=== PATIENT | female | born 1960 | race Two or more races ===

== ENCOUNTER 2017-06-20 13:51 | Emergency (ER) | payer SELFPAY ==
[~2017-06-20] VITALS: Ht 160 cm; Wt 63.5 kg
--- NOTE | 2017-06-20 13:51 | NUR ---
BBRA FROM WORK PER REPORT C/O "NOT FEELING GOOD". NAD NOTED. VSS. PT PLACED ON MONITOR. MD AT BEDSIDE FOR EVAL.
[2017-06-20 14:42] LABS: BASOPHILS % (AUTO) 0.3 % (0.0-2.0); EOSINOPHILS # (AUTO) 0.1 /CMM (0.0-0.7); EOSINOPHILS % (AUTO) 0.9 % (0.0-6.0); HEMATOCRIT 34 % (33-45); LYMPHOCYTES # (AUTO) 2.4 /CMM (0.8-4.8); LYMPHOCYTES % (AUTO) 20.4 % (20.0-44.0); MEAN CORPUSCULAR HEMOGLOBIN 30 PG (26.0-33.0); MEAN CORPUSCULAR HGB CONC 35 g/dl (31.0-36.0); MEAN CORPUSCULAR VOLUME 86 fL (82-100); MONOCYTES # (AUTO) 0.7 /CMM (0.1-1.30); MONOCYTES % (AUTO) 5.8 % (2.0-12.0); NEUTROPHILS # (AUTO) 8.8 /CMM (1.8-8.9); NEUTROPHILS % (AUTO) 72.6 % (43.0-81.0); PLATELET COUNT (AUTO) 337 /CMM (150-450); RDW COEFFICIENT OF VARIATION 12.4 (11.5-15.0); RED BLOOD CELL COUNT(AUTO) 3.96 MIL/uL (4.0-5.2); WHITE BLOOD COUNT (AUTO) 11.9 K/uL (4.3-11.0)
[2017-06-20 14:51] LABS: CALCIUM, SERUM 8.3 mg/dL (8.5-10.1); CARBON DIOXIDE 19 mmol/L (21-32); CHLORIDE 103 mmol/L (98-107); CREATININE 1.3 mg/dL (0.6-1.3); GLUCOSE 226 mg/dL (74-106); POTASSIUM 3.4 mmol/L (3.5-5.1); SODIUM SERUM 136 mmol/L (136-145); UREA NITROGEN, BLOOD 23 mg/dL (7-18)
[2017-06-20] MEDS ORDERED: LORAZEPAM INJ 2 MG/ML VIAL ONE ×2 (14:52→15:30)
[2017-06-20] MEDS: LORAZEPAM INJ 2 MG/ML VIAL IVP ONE (14:56)
[2017-06-20 14:59] LABS: ALANINE AMINOTRANSFERASE 36 U/L (12-78); ALBUMIN 2.9 g/dL (3.4-5.0); ALCOHOL, BLOOD < 3 mg/dL (0-0); ALKALINE PHOSPHATASE 113 U/L (46-116); ASPARTATE AMINOTRANSFERASE 34 U/L (15-37); BILIRUBIN,TOTAL 0.2 mg/dL (0.2-1.0); SALICYLATE 3.2 mg/dL (2.8-20.0); TOTAL PROTEIN, SERUM 6.7 g/dL (6.4-8.2)
[2017-06-20 15:01] LABS: ACETAMINOPHEN < 2 ug/ml (10-30)
--- NOTE | 2017-06-20 15:21 | NUR ---
[phone] ANDREW BATRES Addendum: 06/20/17 at 1655 josiah MALONE [phone]. 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
[2017-06-20] MEDS: LORAZEPAM INJ 2 MG/ML VIAL IV ONE (15:34)
--- NOTE | 2017-06-20 18:00 | NUR ---
PATIENT RESTING IN BED COMFORTABLY. NAD NOTED.
--- NOTE | 2017-06-20 20:20 | NUR ---
CALLED EMPLOYER, ANDREW BATRES, WILL COME TO DIRECTOR TEEN POST PT.
--- NOTE | 2017-06-20 21:50 | NUR ---
PT D/C'D TO CO WORKERS. STATES THEY WILL TAKE PT HOME. PT IS AMBULATORY W. STEADY GAIT. STABLE VITALS.
[2017-06-20 22:04] VITALS: BP 121/67
== END 2017-06-20 22:05 | disposition home or self-care (01) ==
LOC: ER 13:53
DX: F41.9 Anxiety disorder, unspecified (principal); F12.929 Cannabis use, unspecified with intoxication, unspecified
CPT/HCPCS: 36415; 70450; 80048; 80076; 80329; 85025; 93005; 96374; 96376; 99285; A4606; G0480 ×2; J2060 ×2; Z7610